=== PATIENT | male | born 1965 | race Caucasian/White ===

== ENCOUNTER 2017-05-27 14:25 | Emergency (ER) | payer SELFPAY ==
[~2017-05-27] VITALS: Ht 172.7 cm; Wt 75.0 kg
[2017-05-27 16:21] LABS: BASOPHILS % 1.1 % (0.0-2.0); EOSINOPHILS % 2.5 % (0.0-5.0); HEMATOCRIT. 42.3 % (42.0-52.0); HEMOGLOBIN. 15.3 g/dL (14.0-18.0); LYMPHOCYTES % 19.7 % (20.0-50.0); MEAN CORPUSCULAR HEMOGLOBIN 33.4 pg (28.0-32.0); MEAN CORPUSCULAR VOLUME 92.1 fL (80.0-94.0); MEAN PLATELET VOLUME 7.2 fl (7.4-10.4); MONOCYTES % 9.4 % (2.0-8.0); NEUTROPHILS % 67.3 % (40.0-76.0); PLATELET 248 x1000/uL (130-400); RED BLOOD CELL COUNT 4.59 mill/uL (4.7-6.1); RED CELL DISTRIBUTION WIDTH 12.6 % (11.6-14.6)
[2017-05-27 16:26] LABS: CHLORIDE 99 mEq/L (98-107)
[2017-05-27 16:29] LABS: PROTHROMBIN TIME 10.7 sec (9.4-11.6)
[2017-05-27 16:32] LABS: CARBON DIOXIDE 27 mEq/L (21-32)
[2017-05-27 16:38] LABS: TROPONIN I < 0.02 ng/mL (0.00-0.04)
[2017-05-27 20:46] VITALS: BP 126/73
== END 2017-05-27 21:07 | disposition home or self-care (01) ==
LOC: ER 14:44
DX: R07.9 Chest pain, unspecified (principal); E11.9 Type 2 diabetes mellitus without complications; E78.00 Pure hypercholesterolemia, unspecified
CPT/HCPCS: 36415; 71010; 80053; 83880; 84484; 85025; 85610; 93005; 99285; Z7610

== ENCOUNTER 2019-04-12 06:12 | Inpatient (IN) | payer OTHER, MEDICAID ==
[~2019-04-12] VITALS: Ht 175.3 cm; Wt 66.2 kg
[2019-04-12 07:21] LABS: BASOPHILS % 1.9 % (0.0-2.0); EOSINOPHILS % 13.3 % (0.0-5.0); HEMATOCRIT. 40.2 % (42.0-52.0); HEMOGLOBIN. 13.9 g/dL (14.0-18.0); LYMPHOCYTES % 16.2 % (20.0-50.0); MEAN CORPUSCULAR HEMOGLOBIN 30.6 pg (28.0-32.0); MEAN CORPUSCULAR VOLUME 88.1 fL (80.0-94.0); MEAN PLATELET VOLUME 7.1 fl (7.4-10.4); MONOCYTES % 7.4 % (2.0-8.0); NEUTROPHILS % 61.2 % (40.0-76.0); PLATELET 262 x1000/uL (130-400); RED BLOOD CELL COUNT 4.56 mill/uL (4.7-6.1); RED CELL DISTRIBUTION WIDTH 14.2 % (11.6-14.6)
[2019-04-12 07:23] LABS: CHLORIDE 100 mEq/L (98-107)
[2019-04-12] MEDS ORDERED: MORPHINE SULFATE 4 MG/ML CPJ (NOT FOR IM USE) IV NR (13:30)
[2019-04-12] MEDS ORDERED: NITROGLYCERIN 0.4MG TABLET SL SL PRN (13:30)
[2019-04-12 14:14] VITALS: BP 125/77
[2019-04-12] MEDS ORDERED: CLONIDINE 0.1MG TABLET PO PRN (14:15)
[2019-04-12] MEDS ORDERED: MAGNESIUM/ALUMINUM HYDROXIDE/SIMETHICONE 30ML UDC PO PRN (14:15)
[2019-04-12] MEDS ORDERED: DOCUSATE SODIUM 100MG CAPSULE PO PRN (14:15)
[2019-04-12] MEDS ORDERED: GUAIFENESIN 200MG/10ML SUGAR FREE UDC PO PRN (14:15)
[2019-04-12] MEDS ORDERED: HYDROCODONE/ACETAMINOPHEN 5/325MG TABLET PO PRN (14:15)
[2019-04-12] MEDS ORDERED: ACETAMINOPHEN 325MG TABLET PO PRN (14:15)
[2019-04-12] MEDS ORDERED: MORPHINE SULFATE 2 MG/ML CPJ (NOT FOR IM USE) IV PRN (14:15)
[2019-04-12] MEDS ORDERED: ONDANSETRON HCL 4MG/2ML INJ IV PRN (14:15)
[2019-04-12] MEDS ORDERED: ENOXAPARIN 40MG/0.4ML SYR SUBCUT SCH (15:00)
[2019-04-12 16:00] VITALS: BP 104/70
[2019-04-12] MEDS ORDERED: CALC-1042 PO (16:29)
[2019-04-12 16:43] VITALS: BP 125/77
[2019-04-12] MEDS ORDERED: PNEUMOCOCCAL 23-VAL P-SAC VAC 0.5 ML IM ONE (17:15)
[2019-04-12] MEDS ORDERED: DEXTROSE 50% WATER 50ML SYRINGE IV PRN (18:15)
[2019-04-12 20:00] VITALS: BP 113/81
[2019-04-12] MEDS: BLOOD SUGAR DIAGNOSTIC STRIP TEST SCH (21:10)
[2019-04-12] MEDS: INSULIN LISPRO 100 UNITS/ML SUBCUT SCH (21:10)
[2019-04-13] VITALS: BP 100/75
[2019-04-13 00:35] LABS: CREATINE KINASE 60 IU/L (39-308)
[2019-04-13 00:36] LABS: CREATINE KINASE MB FRACTION 2.3 ng/mL (0.5-3.6)
[2019-04-13 04:00] VITALS: BP 105/74
[2019-04-13 05:54] LABS: CHLORIDE 105 mEq/L (98-107)
[2019-04-13] MEDS: INSULIN LISPRO 100 UNITS/ML SUBCUT SCH ×2 (06:08→12:32)
[2019-04-13] MEDS: BLOOD SUGAR DIAGNOSTIC STRIP TEST SCH ×2 (06:08→12:35)
[2019-04-13 06:12] LABS: HDL CHOLESTEROL 61 mg/dL (40-59); LDL CHOLESTEROL 66 mg/dL (5-100)
[2019-04-13 06:14] LABS: CREATINE KINASE 54 IU/L (39-308)
[2019-04-13 06:15] LABS: CREATINE KINASE MB FRACTION 2.4 ng/mL (0.5-3.6)
[2019-04-13 06:18] LABS: HEMATOCRIT. 39.6 % (42.0-52.0); HEMOGLOBIN. 13.6 g/dL (14.0-18.0); MEAN CORPUSCULAR HEMOGLOBIN 30.7 pg (28.0-32.0); MEAN CORPUSCULAR VOLUME 89.2 fL (80.0-94.0); MEAN PLATELET VOLUME 7.5 fl (7.4-10.4); PLATELET 253 x1000/uL (130-400); RED BLOOD CELL COUNT 4.43 mill/uL (4.7-6.1); RED CELL DISTRIBUTION WIDTH 13.9 % (11.6-14.6)
[2019-04-13 08:00] VITALS: BP 114/83
[2019-04-13] MEDS ORDERED: REGADENOSON 0.4 MG/5 ML IV SCH (08:45)
[2019-04-13] MEDS ORDERED: ASPIRIN 81MG EC TABLET PO SCH (09:00)
[2019-04-13] MEDS ORDERED: AMLODIPINE 10MG TABLET PO SCH (09:00)
[2019-04-13 10:24] LABS: T4 FREE 0.89 ng/dL (0.76-1.46)
[2019-04-13 14:33] VITALS: BP 119/77
[2019-04-13 15:56] LABS: CREATINE KINASE 54 IU/L (39-308)
[2019-04-13 15:57] LABS: CREATINE KINASE MB FRACTION 2.1 ng/mL (0.5-3.6)
[2019-04-13 19:53] LABS: PLATELET ESTIMATE NORMAL
== END 2019-04-13 16:10 | disposition home or self-care (01) | DRG 198 ==
LOC: ER 06:12 → 8WST 08:24 → EDBEDREQTM 08:33 → ENRESERV 13:27
PROVIDERS: ADMIT Hospitalist; ATTEND Hospitalist
DX: R07.9 Chest pain, unspecified (principal); I25.2 Old myocardial infarction; E11.65 Type 2 diabetes mellitus with hyperglycemia; I10 Essential (primary) hypertension; E78.00 Pure hypercholesterolemia, unspecified; E78.5 Hyperlipidemia, unspecified; Z79.84 Long term (current) use of oral hypoglycemic drugs; Z79.899 Other long term (current) drug therapy
CPT/HCPCS: 36415; 71045; 78452; 80061; 82550; 82553; 82962; 83036; 83880; 84439; 84443; 84484; 85379; 90732; 93005; 93017; 93306; 93970; 99291; A9500; J1650; J1815

== ENCOUNTER 2019-08-15 19:14 | Emergency (ER) | payer MEDICAID ==
[~2019-08-15] VITALS: Ht 172.7 cm; Wt 79.0 kg
[~2019-08-15 19:14] MED LIST: CALC-1042 PO
[2019-08-16 04:48] VITALS: BP 122/81
== END 2019-08-16 04:50 | disposition home or self-care (01) ==
LOC: ER 19:14
DX: J20.9 Acute bronchitis, unspecified (principal); E11.9 Type 2 diabetes mellitus without complications; I10 Essential (primary) hypertension; M19.90 Unspecified osteoarthritis, unspecified site; F10.10 Alcohol abuse, uncomplicated; Y90.9 Presence of alcohol in blood, level not specified
CPT/HCPCS: 71045; 93005; 99283